=== PATIENT | male | born 1960 | race Asian ===

== ENCOUNTER 2022-12-10 00:25 | Inpatient (IN) | payer SELFPAY ==
[~2022-12-10] VITALS: Ht 172.7 cm; Wt 80.3 kg
[2022-12-10 00:42] VITALS: BP_SYST 130; PULSE 80; RESP 20; TEMP 97.8; O2SAT 98
[2022-12-10] MEDS ORDERED: ASPIRIN 325 MG TABLET PO ONE (01:15)
[2022-12-10] MEDS ORDERED: NITROGLYCERIN 1 INCH (GM) OINT. ONE (01:17)
[2022-12-10] MEDS ORDERED: MORPHINE 4 MG INJ. 4 MG/ML VIAL ONE (01:18)
[2022-12-10 01:25] LABS: HEMOGLOBIN 14.9 g/dL (14.0-18.0)
[2022-12-10 01:39] LABS: BASOPHILS # (AUTO) 0.1 K/uL (0.0-0.2); EOSINOPHILS # (AUTO) 0.2 K/uL (0.0-0.4); HEMATOCRIT 43.2 % (36-54); LYMPHOCYTES # (AUTO) 1.1 K/uL (1.0-5.5); LYMPHOCYTES % (AUTO) 18.5 % (20.5-51.5); MEAN CORPUSCULAR HEMOGLOBIN 32 pg (27-31); MEAN CORPUSCULAR HGB CONC 35 % (32-36); MEAN CORPUSCULAR VOLUME 92 fL (79.0-98.0); MONOCYTES # (AUTO) 0.4 K/uL (0.0-1.0); MONOCYTES % (AUTO) 7.4 % (1.7-9.3); NEUTROPHILS # (AUTO) 4.1 K/uL (1.8-7.7); NEUTROPHILS % (AUTO) 70.1 % (40.0-70.0); PLATELET COUNT (AUTO) 254 K/uL (130-430); RED BLOOD CELL COUNT(AUTO) 4.68 MIL/uL (4.2-6.2); RED CELL DISTRIBUTION WIDTH 12.4 % (9.0-15.0); WHITE BLOOD COUNT (AUTO) 5.8 K/uL (4.8-10.8)
[2022-12-10 01:42] LABS: ALBUMIN 3.1 g/dL (3.4-4.8); CALCIUM 8.7 mg/dL (8.4-11.0); CREATININE 1.14 mg/dL (0.55-1.30); POTASSIUM 3.8 mmol/L (3.5-5.1); TOTAL BILIRUBIN 0.6 mg/dL (0.0-1.0); TOTAL PROTEIN, SERUM 6.3 g/dL (6.4-8.3)
[2022-12-10] MEDS ORDERED: INSULIN REGULAR, HUMAN 10 UNITS/0.1 ML, 3 ML VIAL IVP ONE (02:00)
[2022-12-10] MEDS ORDERED: NACL 0.9% 1,000 ML IV ONE ×2 (02:00→03:15)
[2022-12-10] MEDS ORDERED: INSULIN REGULAR, HUMAN 100 UNITS/ML, 3 ML VIAL IV ONE (03:15)
[2022-12-10] MEDS ORDERED: INSULIN REGULAR, HUMAN 10 UNITS/0.1 ML, 3 ML VIAL ONE (03:19)
[2022-12-10 03:25] LABS: BILIRUBIN,URINE NEGATIVE (NEGATIVE); BLOOD, URINE NEGATIVE (NEGATIVE); CLARITY/URINE CLEAR (CLEAR); COLOR,URINE YELLOW (YELLOW); GLUCOSE,URINE 3+ (NEGATIVE); KETONES,URINE NEGATIVE (NEGATIVE); LEUKOCYTE ESTERASE ,URINE NEGATIVE (NEGATIVE); NITRITE, URINE NEGATIVE (NEGATIVE); PROTEIN URINE NEGATIVE (NEGATIVE); UROBILINOGEN,URINE 0.2 (0.2-1.0)
[2022-12-10] MEDS ORDERED: MORPHINE 4 MG INJ. 4 MG/ML VIAL IVP ONE ×2 (04:00→23:30)
[2022-12-10] MEDS ORDERED: INSULIN REGULAR, HUMAN 100 UNITS/ML, 3 ML VIAL (humuLIN R) SUBCUT PRN (04:00)
[2022-12-10] MEDS ORDERED: ENOXAPARIN SODIUM 60 MG/0.6 ML SYRINGE SUBCUT ONE (04:30)
[2022-12-10 06:34] LABS: CALCIUM 8.1 mg/dL (8.4-11.0); CREATININE 0.77 mg/dL (0.55-1.30); POTASSIUM 3.8 mmol/L (3.5-5.1)
[2022-12-10 06:36] LABS: HEMOGLOBIN A1C 12.04 % (<5.7)
[2022-12-10 06:38] LABS: BASOPHILS % (AUTO) 0.4 % (0.0-2.0); EOSINOPHILS # (AUTO) 0.1 K/uL (0.0-0.4); EOSINOPHILS % (AUTO) 1.8 % (0.0-4.0); HEMATOCRIT 41.8 % (36-54); HEMOGLOBIN 14.2 g/dL (14.0-18.0); LYMPHOCYTES # (AUTO) 1.4 K/uL (1.0-5.5); MEAN CORPUSCULAR HEMOGLOBIN 31 pg (27-31); MEAN CORPUSCULAR HGB CONC 34 % (32-36); MEAN CORPUSCULAR VOLUME 92 fL (79.0-98.0); MONOCYTES # (AUTO) 0.6 K/uL (0.0-1.0); MONOCYTES % (AUTO) 7.7 % (1.7-9.3); NEUTROPHILS # (AUTO) 5.6 K/uL (1.8-7.7); NEUTROPHILS % (AUTO) 72.1 % (40.0-70.0); PLATELET COUNT (AUTO) 259 K/uL (130-430); RED BLOOD CELL COUNT(AUTO) 4.56 MIL/uL (4.2-6.2); RED CELL DISTRIBUTION WIDTH 12.4 % (9.0-15.0); WHITE BLOOD COUNT (AUTO) 7.7 K/uL (4.8-10.8)
[2022-12-10] MEDS ORDERED: D5W 1,000 ML IV PRN ×2 (07:00→07:30)
[2022-12-10] MEDS ORDERED: GLUCOSE (DEXTROSE) ORAL GEL -Adults PO PRN ×2 (07:00→07:30)
[2022-12-10] MEDS ORDERED: *LOVENOX 1MG/KG Q12H/PHARMACY XX PRN (07:00)
[2022-12-10] MEDS ORDERED: DEXTROSE 50%-WATER 50 ML DISP.SYRIN IVP PRN ×2 (07:00→07:30)
[2022-12-10 07:10] LABS: ALBUMIN 2.9 g/dL (3.4-4.8); THYROID STIMULATING HORMONE 2.12 uIu/mL (0.34-4.82); TOTAL BILIRUBIN 0.6 mg/dL (0.0-1.0); TOTAL PROTEIN, SERUM 5.8 g/dL (6.4-8.3)
[2022-12-10 08:30] VITALS: BP_SYST 113; PULSE 66; RESP 18; TEMP 97.5; O2SAT 99
[2022-12-10] MEDS: ASPIRIN 81 MG TAB.CHEW PO SCH (09:24)
[2022-12-10] MEDS: ENOXAPARIN SODIUM 80 MG/0.8 ML SYRINGE SUBCUT SCH ×2 (09:25→21:01)
[2022-12-10] MEDS ORDERED: ATORVASTATIN 20 MG TABLET PO ONE (10:30)
[2022-12-10] MEDS: INSULIN LISPRO SLIDING SCALE 100 UNITS/ML, 3 ML VIAL (humaLOG) SUBCUT PRN ×3 (12:31→23:06)
[2022-12-10 17:07] VITALS: BP_SYST 111; PULSE 71; RESP 16; TEMP 98.1; O2SAT 98
[2022-12-10 19:45] VITALS: O2SAT 97
[2022-12-10 20:00] VITALS: BP_SYST 120; PULSE 75; RESP 16; TEMP 97.9; O2SAT 97
[2022-12-10] MEDS ORDERED: NITROGLYCERIN 1 INCH (GM) OINT. TP ONE (23:30)
[2022-12-11] VITALS: BP_SYST 136; PULSE 71; RESP 16; TEMP 96.9; O2SAT 97
[2022-12-11 00:25] VITALS: BP_SYST 120; PULSE 75; RESP 16; TEMP 97.9; O2SAT 97
[2022-12-11] MEDS: INSULIN LISPRO SLIDING SCALE 100 UNITS/ML, 3 ML VIAL (humaLOG) SUBCUT PRN (05:40)
[2022-12-11] MEDS ORDERED: metFORMIN HCL 500 MG TABLET PO SCH (08:00)
[2022-12-11 08:05] VITALS: BP_SYST 122; PULSE 73; RESP 18; TEMP 96.7; O2SAT 96
[2022-12-11] MEDS: ASPIRIN 81 MG TAB.CHEW PO SCH (08:46)
[2022-12-11] MEDS: ENOXAPARIN SODIUM 80 MG/0.8 ML SYRINGE SUBCUT SCH (08:58)
[2022-12-11] MEDS ORDERED: CARVEDILOL 3.125 MG TABLET (COREG) PO SCH (09:00)
[2022-12-11] MEDS ORDERED: ATORVASTATIN 20 MG TABLET PO SCH (09:00)
[2022-12-11 10:00] VITALS: O2SAT 96
== END 2022-12-11 14:00 | disposition left against medical advice (07) | DRG 282 ==
LOC: SED 00:25 → STU 04:00
PROVIDERS: ADMIT Internal Medicine; ATTEND Internal Medicine
DX: I21.4 Non-ST elevation (NSTEMI) myocardial infarction (principal); E11.9 Type 2 diabetes mellitus without complications; Z83.3 Family history of diabetes mellitus
CPT/HCPCS: 36415; 71045; 80053; 80061; 81001; 81003; 82962; 83037; 83880; 84443; 84484; 85025; 85379; 93005; 93306; G0378; J1650; J1815; J2270